=== PATIENT | male | born 1985 | race Caucasian/White ===

== ENCOUNTER 2020-11-18 18:41 | Emergency (ER) | payer SELFPAY ==
[2020-11-18 18:56] VITALS: BP 123/86; PULSE 98; RESP 18; TEMP 37.1; O2SAT 100; BMI 20.3
--- NOTE | 2020-11-18 19:54 | ED_ITS ---
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 He slept well that night but he says all day today has had a hallucinations that he is picturing a [place] going by his house with a [place] with a hoodie that gets out and walks around and then leaves. He is not sure what is real and what is not real he is paranoid that a group of people are going to come to his house. He is very calm and cooperative he has no agitation here in the ER he just wants help with these hallucinations he feels he can go home he denies any suicidal or homicidal ideation he is just never had the hallucinations this long before. He has had hallucinations before with meth use and denies having hallucinations without illicit drug use and denies any history of schizophrenia. He also is requesting any resources for therapy and/or treatment patient used to use alcohol fairly heavily but then he switched to meth Review of Systems Narrative: General: denies fatigue, fever or chills HEENT: denies ear pain, denies nasal congestion, denies vision changes, denies sore throat Neck: denies masses or pain Resp: denies cough, denies shortness of breath, denies pleuritic pain Cardio: denies chest pain, denies edema GI: denies abdominal pain, denies N/V/D, denies black/tarry or bloody stools : denies hematuria, denies dysuria Neuro: denies headache, denies dizziness, denies motor or sensory changes Musculoskeletal: denies pain, denies swelling Skin: denies rashes Psych: denies SI or HI but admits to visual and auditory hallucinations denies wanting to harm anybody Endocrine: denies thyroid symptoms, denies lymphadenopathy all over ROS reviewed and patient denies Physical Exam Narrative: EXAM NARRATIVE: General: no distress, HEENT: normal eyes, normal mouth, normal external nose Neck: FROM Resp: normal effort, no tachypnea, no stridor Cardio: normal rate, no edema GI: soft, flat, non distended : deferred Neuro: normal coordination, normal speech, no gross motor or sensory deficits Musculo: normal ROM, no gross deformities Skin: no rash Psych: normal behavior normal mood and effect he is calm cool normal speech does admit to seeing things and hearing voices Course Vital Signs: Vital signs: Vital Signs Temperature 98.7 F 11/18/20 18:56 Pulse Rate 98 11/18/20 18:56 Respiratory Rate 18 11/18/20 18:56 Blood Pressure 123/86 11/18/20 18:56 Pulse Oximetry 100 11/18/20 18:56 MDM - Psych MDM Narrative: Medical decision making narrative: Patient is very calm and cooperative he is very forthright and honest about his meth use he has had hallucinations before generally he can sleep them off. He denies any SI or HI he says he wants help he called his mother named Lilian who he can stay with her tonight I spoke with psychiatry Dr. Canas who recommend Zyprexa 5 mg twice a day for 3 days. Patient and his mom are asking for some outpatient resources I will give him a rehab in [place] however mom thinks he needs to get away from here and may be moved closer to her which is in [place]. I recommended they could call [facility] and see if they have any treatment facilities or counseling etc. and we will try to give him any resources we can. Patient's never been admitted here for psychiatry Discharge Plan Discharge Patient Disposition: Home Clinical Impression: Drug induced hallucinations Condition: Stable Prescriptions: New Zyprexa 5 mg tablet 5 mg PO BID Qty: 5 RF: 0 Discharge Orders: Discharge ED (Routine); Ordered 11/18/20 Ordered By: Shira Spears Discharge Diet: Usual diet Activity Restrictions/Additional Instructions: You can take Zyprexa 5 mg twice a day for 3 days as needed for hallucinations. Recommend you stop using meth. Call [facility] and ask for the [facility] or behavioral health department and see if they have some referrals and/or recommendations for any outpatient therapy. Return if worsening of symptoms acute psychosis Coding Level of Care Code ED Staffing And Scheduling Coordinator for Kyung Lund
[2020-11-18 19:58] VITALS: BP 103/80; PULSE 98; RESP 18; TEMP 36.7; O2SAT 100
[2020-11-18] MEDS: OLANZapine 10 mg ODT PO (20:11)
== END 2020-11-18 20:10 | disposition home or self-care (01) ==
PROVIDERS: Emergency Provider Emergency Medicine
DX: F15.951 Other stimulant use, unspecified with stimulant-induced psychotic disorder with hallucinations (principal)
CPT/HCPCS: 99282

== ENCOUNTER 2021-07-01 08:43 | Inpatient (IN) | payer SELFPAY ==
[2021-07-01 08:53] VITALS: BP 128/89; PULSE 108; RESP 18; TEMP 36.9; O2SAT 95; BMI 23.6
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
[2021-07-01 10:25] LABS: Basophils # 0.1 10^3/uL (0.0-0.1); Basophils % 0.6 %; Eosinophils # 0.1 10^3/uL (0.0-0.8); Eosinophils % 1.3 %; Hematocrit 49.9 % (42.0-52.0); Hemoglobin 17.7 g/dL (11.7-16.6); Lymphocytes # 1.7 10^3/uL (0.8-4.8); Lymphocytes % 20.4 %; Mean Corpuscular HGB Conc 35.5 g/dL (30.0-36.0); Mean Corpuscular Hemoglobin 32.9 pg (28.0-34.0); Mean Corpuscular Volume 92.8 fl (80-94); Mean Platelet Volume 10.6 fL (7.4-10.4); Monocytes % 12.1 %; Neutrophils % 65.4 %; Nucleated Red Blood Cells % 0 %; Platelet Count 209 10^3/cmm (130-400); Red Blood Count 5.38 10^6/uL (4.1-5.3); Red Cell Distribution Width 13.2 % (12.1-15.1); White Blood Count 8.3 10^3/uL (4.0-10.0)
[2021-07-01 10:46] LABS: Acetaminophen < 5.0 ug/mL (10-30); Alanine Aminotransferase 12 U/L (0-41); Albumin Level 4.5 g/dL (3.5-5.2); Alcohol Level < 10 mg/dL (0-10); Alkaline Phosphatase 57 IU/L (40-130); Anion Gap 21.8 (5-19); Aspartate Amino Transferase 25 U/L (0-40); Blood Urea Nitrogen 10 mg/dL (6-20); Calcium 8.8 mg/dL (8.5-10.5); Carbon Dioxide 19 mmol/L (22-29); Chloride 99 mmol/L (98-107); Globulin 3.2 g/dL (1.3-4.6); Glomerular Filtration Rate 96.6 mL/min (90-130); Glucose 94 mg/dL (65-115); Osmolality Calculated 281 mOsm/kg (285-295); Potassium 3.8 mmol/L (3.5-5.1); Salicylate < 0.3 mg/dL (3-10); Sodium 136 mmol/L (136-145); Total Bilirubin 1.1 mg/dL (0.15-1.2); Total Protein 7.7 g/dL (6.6-8.7)
[2021-07-01 12:41] VITALS: BP 128/89; PULSE 108; RESP 18; TEMP 36.9; O2SAT 95
[2021-07-01 14:00] VITALS: BP 125/93; PULSE 124; RESP 18; TEMP 36.8; O2SAT 95
[2021-07-01] MEDS: haloperidol 5 mg Tablet PO (18:25)
--- NOTE | 2021-07-01 18:47 | PC.NURSE ---
PRN MED PT GIVEN 5MG HALDOL FOR HALLUCINATIONS, PT SEEING THINGS & AND DELUSIONAL, WILL CONTINUE MONITORING.
[2021-07-01 22:00] VITALS: RESP 16
[2021-07-02 05:54] VITALS: BP 98/66; PULSE 100; RESP 15; TEMP 37.2; O2SAT 98
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
[2021-07-02] MEDS: multivitamin therapeutic Tablet 1 TAB PO (09:22)
[2021-07-02] MEDS: folic acid 1 mg Tablet PO (09:22)
[2021-07-02] MEDS: thiamine 100 mg Tablet PO (09:22)
--- NOTE | 2021-07-02 11:02 | NPU.GN ---
[facility] Group Topic:Group Topic:Soraya Word Search General Mood of Group:Harsha did not attend group today he slept today.
[2021-07-02 14:00] VITALS: BP 143/70; PULSE 100; RESP 17; TEMP 36.9; O2SAT 98
[2021-07-02 20:43] VITALS: BP 101/67; PULSE 82; RESP 18; TEMP 36.7; O2SAT 99
[2021-07-03 06:00] VITALS: BP 93/63; PULSE 89; RESP 17; TEMP 36.8; O2SAT 98
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
[2021-07-03 09:43] VITALS: BP 93/63; PULSE 89; RESP 17; TEMP 36.8; O2SAT 98
[2021-07-03] MEDS: thiamine 100 mg Tablet PO (09:46)
[2021-07-03] MEDS: folic acid 1 mg Tablet PO (09:46)
[2021-07-03] MEDS: multivitamin therapeutic Tablet 1 TAB PO (09:46)
[2021-07-03] MEDS: escitalopram 10 mg Tablet PO (09:46)
== END 2021-07-03 09:55 | disposition home or self-care (01) | DRG 885 ==
LOC: ER 11:44 → NP 07-02 03:31
PROVIDERS: Admitting Provider Psychiatry & Neurology Psychiatry; Emergency Provider Physician Assistant; Visit Provider Psychiatry & Neurology Psychiatry
DX: F23 Brief psychotic disorder (principal); F15.10 Other stimulant abuse, uncomplicated; F10.10 Alcohol abuse, uncomplicated; F12.10 Cannabis abuse, uncomplicated; F32.9 Major depressive disorder, single episode, unspecified; F91.3 Oppositional defiant disorder; Z81.8 Family history of other mental and behavioral disorders
CPT/HCPCS: 80053; 80307; 85025; 97150; 97165; 99285